=== PATIENT | female | born 1985 | race Caucasian/White ===

== ENCOUNTER 2022-11-28 23:54 | Emergency (ER) | payer SELFPAY ==
[~2022-11-28] VITALS: Ht 160 cm; Wt 63.3 kg
[2022-11-29 00:20] VITALS: BP 122/49
== END 2022-11-29 04:00 | disposition left against medical advice (07) ==
LOC: ER 23:54
DX: Z53.21 Procedure and treatment not carried out due to patient leaving prior to being seen by health care provider (principal); R21 Rash and other nonspecific skin eruption